=== PATIENT | male | born 1960 | race Caucasian/White ===

== ENCOUNTER 2017-03-19 09:32 | Day surgery (SDC) | payer OTHER ==
--- NOTE | ~2017-03-19 | EGD ---
EGD REPORT [facility] [address] [place]. [id number] NAME: EDWIN VAUGHAN : [birth year] STATUS : REG [facility] [place] PAT#: [id number] AGE: 56 ADM/REG DATE : 03/19/17 MR#: [id number] REPORT SERV DATE: 03/19/17 DICTATED BY: KIERAN RAZA DATE: 03/19/17 REPORT STATUS : Draft TRANSCRIBED BY: [facility] DATE: 03/19/17 Endoscopy Center Patient Name: Edwin Vaughan Date of : 1960 Attending MD: KIERAN RAZA MD Procedure Date No Time: 03/19/2017 Procedure: Colonoscopy Indications: positive cologuard Referring MD: TOÑITO HERRERA Medicines: as per anesthesia Complications: No immediate complications. Procedure: Pre-Anesthesia Assessment: - ASA Grade Assessment: III - A patient with severe systemic disease. After I obtained informed consent, the scope was passed under direct vision. Throughout the procedure, the patient's blood pressure, pulse, and oxygen saturations were monitored continuously. The PCF [id number] was introduced through the anus and advanced to the cecum, identified by appendiceal orifice and ileocecal valve. The colonoscopy was performed without difficulty. The patient tolerated the procedure. The quality of the bowel preparation was fair. Findings: The perianal and digital rectal examinations were normal. A sessile polyp was found in the sigmoid colon. The polyp was 5 mm in size. The polyp was removed with a jumbo cold forceps. Resection and retrieval were complete. Internal hemorrhoids were found during endoscopy and were mild. Impression: - One 5 mm polyp in the sigmoid colon. Resected and retrieved. - Internal hemorrhoids. Recommendation: - Await pathology results. - Repeat colonoscopy for surveillance based on pathology results. Procedure Code(s): --- Professional --- 05312, Colonoscopy, flexible, proximal to splenic flexure; with biopsy, single or multiple Diagnosis Code(s): --- Professional --- D12.5, Benign neoplasm of sigmoid colon EGD REPORT [facility] [address] [facility] [place] [address] NAME: EDWIN VAUGHAN : [birth year] STATUS : REG [facility] [place] PAT#: [id number] AGE: 56 ADM/REG DATE : 03/19/17 MR#: [id number] REPORT SERV DATE: 03/19/17 DICTATED BY: KIERAN RAZA. DATE: 03/19/17 REPORT STATUS : Draft TRANSCRIBED BY: [employer] DATE: 03/19/17 K64.8, Other hemorrhoids CPT copyright 2013 [employer]. All rights reserved. The codes documented in this report are preliminary and upon golf caddy review may be revised to meet current compliance requirements. KIERAN RAZA MD 03/19/2017 11:41 AM This report has been signed electronically. Number of Addenda: 0 Note Initiated On: 03/19/2017 11:13 AM Scope Withdrawal Time 0 hours 8 minutes 13 seconds [id number] [place] [id number]
[~2017-03-19 09:32] MED LIST: ENDOCET1 TA3 PO; GLUCOPHAGE1000 MG PO; JANUVIA25 MG PO; LIPITOR10 PO; MOBIC15 MG PO; NEUR400 PO; NO MEDS; XANAX2 MG PO; ZOL100 PO
== END 2017-03-19 23:59 | disposition home health service (06) ==
LOC: DMU 09:32
PROVIDERS: Internal Medicine Gastroenterology
PROC: 0DBN8ZX Excision of Sigmoid Colon, Via Natural or Artificial Opening Endoscopic, Diagnostic (ICD-10-PCS; principal; 2017-03-19 11:00)
DX: K63.5 Polyp of colon (principal); K64.8 Other hemorrhoids; E11.9 Type 2 diabetes mellitus without complications; F17.210 Nicotine dependence, cigarettes, uncomplicated; F32.9 Major depressive disorder, single episode, unspecified; G43.909 Migraine, unspecified, not intractable, without status migrainosus; E78.00 Pure hypercholesterolemia, unspecified; Z90.49 Acquired absence of other specified parts of digestive tract; Z87.442 Personal history of urinary calculi; Z79.899 Other long term (current) drug therapy
CPT/HCPCS: 82962; 88305